=== PATIENT | female | born 1965 ===

== ENCOUNTER 2023-11-01 04:37 | Day surgery (SDC) | payer BC, OTHER ==
[2023-10-30 15:33] VITALS: BMI 38.4
[2023-11-01 09:57] VITALS: RESP 18
[2023-11-01 11:21] VITALS: TEMP 98
[2023-11-01] MEDS ORDERED: IBUPROFEN 400 MG TABLET (FP) PO ONE (11:38)
[2023-11-01] MEDS: IBUPROFEN 400 MG TABLET (FP) PO ONE (11:55)
[2023-11-01 12:12] VITALS: BP 129/77; PULSE 80
== END 2023-11-01 12:12 | disposition home or self-care (01) ==
LOC: JASU-ENDO 04:37
PROVIDERS: ATTEND Internal Medicine Gastroenterology
PROC: 0DBP8ZX Excision of Rectum, Via Natural or Artificial Opening Endoscopic, Diagnostic (ICD-10-PCS; 2023-11-01)
PROC: 0DBL8ZX Excision of Transverse Colon, Via Natural or Artificial Opening Endoscopic, Diagnostic (ICD-10-PCS; principal; 2023-11-01 10:30)
DX: Z12.11 Encounter for screening for malignant neoplasm of colon (principal); D12.3 Benign neoplasm of transverse colon; D12.8 Benign neoplasm of rectum; K64.8 Other hemorrhoids
CPT/HCPCS: 81025; 88305-TC